=== PATIENT | male | born 1985 | race Asian ===

== ENCOUNTER 2020-02-29 13:30 | Emergency (ER) | payer MEDICAID ==
[~2020-02-29] VITALS: Ht 177.8 cm; Wt 104.0 kg
[2020-02-29 15:20] LABS: BASOPHILS % 0.4 % (0.0-2.0); EOSINOPHILS % 0.4 % (0.0-5.0); HEMATOCRIT. 45.2 % (42.0-52.0); HEMOGLOBIN. 15.5 g/dL (14.0-18.0); LYMPHOCYTES % 10.7 % (20.0-50.0); MEAN CORPUSCULAR HEMOGLOBIN 29.8 pg (28.0-32.0); MEAN CORPUSCULAR VOLUME 86.9 fL (80.0-94.0); MEAN PLATELET VOLUME 8.4 fl (7.4-10.4); MONOCYTES % 6.3 % (2.0-8.0); NEUTROPHILS % 82.2 % (40.0-76.0); PLATELET 215 x1000/uL (130-400); RED CELL DISTRIBUTION WIDTH 13.2 % (11.6-14.6)
[2020-02-29 15:25] LABS: CHLORIDE 105 mEq/L (98-107)
[2020-02-29 15:30] LABS: ETHANOL BLOOD < 10 mg/dL
[2020-02-29 15:39] LABS: CLARITY URINE CLEAR (CLEAR); COLOR URINE YELLOW (YELLOW); KETONES URINE 1+ (NEGATIVE); LEUKOCYTE ESTERASE URINE NEGATIVE (NEGATIVE); NITRITE URINE NEGATIVE (NEGATIVE); OCCULT BLOOD URINE NEGATIVE (NEGATIVE); PH URINE 7.5 (4.5-8.0); PROTEIN URINE NEGATIVE (NEGATIVE); SPECIFIC GRAVITY URINE 1.024 (1.005-1.030)
[2020-02-29 15:57] LABS: *AMPHETAMINES SCREEN URINE NEGATIVE (NEGATIVE); *BARBITURATES SCREEN URINE NEGATIVE (NEGATIVE); *BENZODIAZEPINES SCREEN URINE NEGATIVE (NEGATIVE); METHADONE URINE SCREEN NEGATIVE (NEGATIVE)
[2020-02-29 15:58] LABS: CANNABINOID URINE SCREEN NEGATIVE (NEGATIVE); OPIATES URINE SCREEN NEGATIVE (NEGATIVE)
[2020-02-29 15:59] LABS: PHENCYCLIDINE URINE SCREEN NEGATIVE (NEGATIVE)
[2020-02-29 16:05] LABS: *COCAINE SCREEN URINE NEGATIVE (NEGATIVE)
[2020-03-01] MEDS ORDERED: LORAZEPAM 1MG TABLET PO ONE ×2 (11:15→15:15)
[2020-03-02] MEDS: OLANZAPINE 5MG TABLET PO SCH ×2 (10:26→17:29)
[2020-03-02] MEDS ORDERED: DIVALPROEX SODIUM 250MG ER TABLET PO ONE (21:00)
[2020-03-03] MEDS: OLANZAPINE 5MG TABLET PO SCH ×2 (09:43→17:59)
[2020-03-04] MEDS: OLANZAPINE 5MG TABLET PO SCH (10:49)
[2020-03-04 12:30] VITALS: BP 117/74
== END 2020-03-04 13:43 ==
LOC: ER 13:30
DX: F20.9 Schizophrenia, unspecified (principal); F81.81 Disorder of written expression; R00.0 Tachycardia, unspecified; Z59.0 Homelessness
CPT/HCPCS: 36415; 80053; 80305; 80307; 80320; 80329; 81003; 85025; 93005; 99285; Z7610; G0480